=== PATIENT | female | born 1975 | race Caucasian/White ===

== ENCOUNTER 2022-10-24 12:45 | Emergency (ER) | payer OTHER ==
[~2022-10-24] VITALS: Ht 157.5 cm; Wt 45.4 kg
== END 2022-10-24 16:44 | disposition home or self-care (01) ==
LOC: ER 12:45
DX: N39.0 Urinary tract infection, site not specified (principal)

== ENCOUNTER 2025-01-09 13:26 | Emergency (ER) | payer OTHER ==
[~2025-01-09] VITALS: Ht 160 cm; Wt 54.4 kg
[2025-01-09 14:06] VITALS: BP 101/67; O2SAT 98
[2025-01-09] MEDS ORDERED: GUAIFENESIN/DEXTROMETHORPHAN 100MG/10ML BLIST.PACK PO ONE ×2 (15:56→16:00)
[2025-01-09 16:47] LABS: HEMATOCRIT 39.9 % (36.0-45.00); HEMOGLOBIN 13.6 g/dL (12.0-15.00); MEAN CELL VOLUME 89.9 fL (80.00-100.00); MEAN CORPUSCULAR HEMOGLOBIN 30.7 pg (27.00-32.0); MEAN CORPUSCULAR HGB CONC 34.1 g/dl (32.0-36.0); RED BLOOD COUNT 4.44 M/uL (4.00-6.00)
[2025-01-09 17:03] LABS: COVID-19 AG NEGATIVE (NEGATIVE)
[2025-01-09 17:14] LABS: INFLUENZA A AG NEGATIVE (NEGATIVE)
[2025-01-09 17:14] LABS: PLATELET COUNT 333 K/uL (150-450)
[2025-01-09] MEDS ORDERED: MEDROLPACK PO (18:21)
[2025-01-09] MEDS ORDERED: ZITHROMAX500 MG PO (18:21)
[2025-01-09] MEDS ORDERED: QC TUSSIN DM 2237 ML PO (18:21)
== END 2025-01-09 21:02 ==
LOC: ER 13:27
PROVIDERS: General Practice
DX: J21.9 Acute bronchiolitis, unspecified (principal); R05.8 Other specified cough; Z20.822 Contact with and (suspected) exposure to COVID-19